=== PATIENT | male | born 1970 | race Caucasian/White ===

== ENCOUNTER 2017-02-04 20:49 | Emergency (ER) | payer SELFPAY ==
--- NOTE | 2017-02-04 23:11 | RAD ---
THREE VIEWS OF THE RIGHT FOOT: 02/04/17 INDICATION: Right foot injury and pain. FINDINGS: No acute fracture or subluxation is evident. Lisfranc alignment is preserved. An accessory ossicle i s seen adjacent to the cuboid. Enthesopathic change seen off the posterior calcaneus. IMPRESSION: No acute osseous abnormality. POS: [facility]
[2017-02-05] MEDS ORDERED: HYDROcodone/Acetaminophen 7.5/325 mg Tablet ONE (00:04)
== END 2017-02-05 00:24 | disposition home or self-care (01) ==
LOC: ERS 20:49
DX: S97.81XA Crushing injury of right foot, initial encounter (principal); F17.210 Nicotine dependence, cigarettes, uncomplicated; W26.8XXA Contact with other sharp object(s), not elsewhere classified, initial encounter